=== PATIENT | female | born 1975 | race Caucasian/White ===

== ENCOUNTER 2018-03-15 20:21 | Emergency (ER) | payer OTHER ==
[2018-03-15] MEDS ORDERED: LORazepam 2 MG/ML INJ IVP ONE ×2 (20:25→21:18)
--- NOTE | 2018-03-15 20:28 | EDPHY ---
H & P Source: Patient, EMS - Personal History Tetanus Vaccine Date: 1997 Time Seen by Provider: 03/15/18 20:25 HPI/ROS: HPI CHIEF COMPLAINT: PTSD, anxiety attack HISTORY OF PRESENT ILLNESS: Patient is a 42-year-old female, history comes from EMS as the patient will not talk to me, she presents emergency room after she was at her therapist's office an apparently underwent an anxiety attack. EMS reports that she was in her therapist office for hours moaning and writhing in the office. This happens when she has an anxiety/PTSD attack. Upon arrival to the emergency room the patient will not answer my questions. She does appear anxious. EMS gave her 4 mg IV Versed to transport her here. History review of systems is somewhat limited due to patient not answering any of my questions. Past Medical History: History of panic attacks, anxiety, PTSD, cardiac ablation , bipolar disorder cervical strain Past Surgical History: No recent surgery history cardiac ablation Social History: Denies drugs alcohol tobacco. Family History: Noncontributory ROS REVIEW OF SYSTEMS: Review of systems limited due to patient not answering my questions. Exam Constitutional appears anxious triage nursing summary reviewed, vital signs reviewed, awake/alert. Eyes normal conjunctivae and sclera, EOMI, PERRLA. HENT normal inspection, atraumatic, moist mucus membranes, no epistaxis, neck supple/ no meningismus, no raccoon eyes. Respiratory clear to auscultation bilaterally, normal breath sounds, no respiratory distress, no wheezing. Cardiovascular rate normal, regular rhythm, no murmur, no edema, distal pulses normal. Gastrointestinal soft, non-tender, no rebound, no guarding, normal bowel sounds, no distension, no pulsatile mass. Genitourinary no CVA tenderness. Musculoskeletal no midline vertebral tenderness, full range of motion, no calf swelling, no tenderness of extremities, no meningismus, good pulses, neurovascularly intact. Skin pink, warm, & dry, no rash, skin atraumatic. Neurologic patient is awake and alert, moves everything but does not answer any of my questions. Psychiatric anxious Heme/Lymph/Immune no lymphadenopathy. Differential Diagnosis: Includes but is not limited to in a particular order acute anxiety, panic attack, PTSD, mood disorder, bipolar disorder, Medical Decision Making: Plan for this patient IV establishment IV Ativan 1 mg , check basic blood work, alcohol and drug screen. IV Ativan 1 mg. Re-evaluate. Re-evaluation: 2199: Patient is still writhing around on the bed. Anxious. She has received 2 mg IV Ativan. I have now reassessed her and I have ordered her 5 mg IV Versed. Her therapist is at bedside. Reports to me that she gets like this when she has anxiety and PTSD issues. (Josh Paulino) Constitutional: Initial Vital Signs Temperature (C) 36.4 C 03/15/18 20:25 Heart Rate 77 03/15/18 20:25 Respiratory Rate 16 03/15/18 20:25 Blood Pressure 108/87 H 03/15/18 20:25 O2 Sat (%) 94 03/15/18 20:25 O2 Delivery Mode Room Air Allergies/Adverse Reactions: No Known Allergies Allergy (Unverified 09/01/12 21:20) Home Medications: Medication Instructions Recorded Klonopin 03/15/18 Seroquel 03/15/18 Medical Decision Making ED Course/Re-evaluation: 6:44 a.m.- The patient remained stable throughout my shift. She did receive an additional dose of ketamine which helped her significantly. We are awaiting mental health evaluation this morning. The case is signed out to Dr. Rod. (Jasmin Caceres) I took over care of this patient at 7:00 a.m.. This patient is here for a psychiatric evaluation following a anxiety and PTSD attack. She has been given Ativan as well as ketamine 20 mg last night to treat her symptoms. She is awaiting behavioral health evaluation which should occur this morning. She currently is not on an M1 hold. 7:55 a.m., the patient has been seen and evaluated by Behavioral Health. She does not meet criteria for an M1 hold. She is not suicidal. She has been cleared for discharge by the attending psychiatrist Dr. Estrada. She has follow -up with her psychiatrist today at 9:00 p.m.. Family is present and they feel comfortable taking her home and seeing her to her follow-up appointment. Return to emergency department precautions reviewed. The patient's remaining emergency department course under my care has been uneventful. She was discharged home in good condition with family. (Nicanor Rod) - Data Points Laboratory Results: Laboratory Results 03/15/18 21:10 03/15/18 21:10 03/16/18 03/15/18 03/15/18 05:45 21:10 21:10 WBC RBC Hgb Hct MCV MCH MCHC RDW Plt Count MPV Neut % (Auto) Lymph % (Auto) Hardin % (Auto) Eos % (Auto) Baso % (Auto) Nucleat RBC Rel Count Absolute Neuts (auto) Absolute Lymphs (auto) Absolute Monos (auto) Absolute Eos (auto) Absolute Basos (auto) Absolute Nucleated RBC Immature Gran % Immature Gran # Sodium Potassium Chloride Carbon Dioxide Anion Gap BUN Creatinine Estimated GFR Glucose Calcium Creatine Kinase 144 IU/L IU/L (0-156) Beta HCG, Qual NEGATIVE Urine Opiates Screen NEGATIVE (NEGATIVE) Urine Barbiturates NEGATIVE (NEGATIVE) Ur Phencyclidine Scrn NEGATIVE (NEGATIVE) Ur Amphetamine Screen NON-NEGATIVE H (NEGATIVE) U Benzodiazepines Scrn NON-NEGATIVE H (NEGATIVE) Urine Cocaine Screen NEGATIVE (NEGATIVE) U Marijuana (THC) Screen NEGATIVE (NEGATIVE) Ethyl Alcohol 03/15/18 03/15/18 21:10 21:10 WBC 8.63 10^3/uL 10^3/uL (3.80-9.50) RBC 5.19 10^6/uL 10^6/uL (4.18-5.33) Hgb 15.1 g/dL g/dL (12.6-16.3) Hct 44.7 % % (38.0-47.0) MCV 86.1 fL fL (81.5-99.8) MCH 29.1 pg pg (27.9-34.1) MCHC 33.8 g/dL g/dL (32.4-36.7) RDW 13.5 % % (11.5-15.2) Plt Count 204 10^3/uL 10^3/uL (150-400) MPV 10.8 fL fL (8.7-11.7) Neut % (Auto) 61.6 % % (39.3-74.2) Lymph % (Auto) 29.2 % % (15.0-45.0) Hardin % (Auto) 8.6 % % (4.5-13.0) Eos % (Auto) 0.0 % L % (0.6-7.6) Baso % (Auto) 0.3 % % (0.3-1.7) Nucleat RBC Rel Count 0.0 % % (0.0-0.2) Absolute Neuts (auto) 5.31 10^3/uL 10^3/uL (1.70-6.50) Absolute Lymphs (auto) 2.52 10^3/uL 10^3/uL (1.00-3.00) Absolute Monos (auto) 0.74 10^3/uL 10^3/uL (0.30-0.80) Absolute Eos (auto) 0.00 10^3/uL L 10^3/uL (0.03-0.40) Absolute Basos (auto) 0.03 10^3/uL 10^3/uL (0.02-0.10) Absolute Nucleated RBC 0.00 10^3/uL 10^3/uL (0-0.01) Immature Gran % 0.3 % % (0.0-1.1) Immature Gran # 0.03 10^3/uL 10^3/uL (0.00-0.10) Sodium 143 mEq/L mEq/L (135-145) Potassium 4.0 mEq/L mEq/L (3.5-5.2) Chloride 109 mEq/L mEq/L (97-110) Carbon Dioxide 24 mEq/l mEq/l (22-31) Anion Gap 10 mEq/L mEq/L (8-16) BUN 11 mg/dL mg/dL (7-23) Creatinine 0.8 mg/dL mg/dL (0.6-1.0) Estimated GFR > 60 Glucose 71 mg/dL mg/dL (70-100) Calcium 9.7 mg/dL mg/dL (8.5-10.4) Creatine Kinase Beta HCG, Qual Urine Opiates Screen Urine Barbiturates Ur Phencyclidine Scrn Ur Amphetamine Screen U Benzodiazepines Scrn Urine Cocaine Screen U Marijuana (THC) Screen Ethyl Alcohol < 10 mg/dL mg/dL (0-10) Medications Given: Discontinued Medications Sodium Chloride (Ns) 1,000 mls @ 0 mls/hr IV ONCE ONE; Wide Open PRN Reason: Protocol Stop: 03/15/18 21:19 Last Admin: 03/15/18 21:21 Dose: 1,000 mls Ketamine HCl (Ketamine) 20 mg IVP EDNOW ONE Stop: 03/15/18 23:05 Last Admin: 03/15/18 23:11 Dose: 20 mg Ketamine HCl (Ketamine) 20 mg IVP EDNOW ONE Stop: 03/16/18 02:18 Last Admin: 03/16/18 02:21 Dose: 20 mg Lorazepam (Ativan Injection) 1 mg IVP EDNOW ONE Stop: 03/15/18 20:26 Last Admin: 03/15/18 21:04 Dose: 1 mg Lorazepam (Ativan Injection) 1 mg IVP EDNOW ONE Stop: 03/15/18 21:19 Last Admin: 03/15/18 21:21 Dose: 1 mg Midazolam HCl (Versed) 5 mg IVP EDNOW ONE Stop: 03/15/18 21:56 Last Admin: 03/15/18 22:12 Dose: 5 mg Departure - Departure Disposition: Home, Routine, Self-Care Clinical Impression: Anxiety reaction Condition: Good Instructions: Anxiety (ED), Post Traumatic Stress Disorder (ED) Additional Instructions: Read and follow provided instructions. Follow-up with your psychiatrist as scheduled today at 9:00 a.m.. It is very important you do this. Return to the emergency department for worsening symptoms, worsening depression , suicidal thoughts or other serious concerns. Referrals: Patient,NotPresent [Unknown] - As per Instructions
[2018-03-15] MEDS ORDERED: LORazepam 2 MG/ML INJ ONE (20:45)
[2018-03-15] MEDS ORDERED: NS 1,000 ML IV ONE (21:18)
[2018-03-15 21:35] LABS: PLATELET COUNT 204 10^3/uL (150-400)
[2018-03-15] MEDS ORDERED: MIDAZOLAM 2 MG/2 ML VIAL IVP ONE (21:55)
[2018-03-15] MEDS: KETAMINE 200 MG/20 ML VIAL IVP ONE (23:11)
[2018-03-16] MEDS ORDERED: KETAMINE 200 MG/20 ML VIAL ONE (02:16)
[2018-03-16] MEDS ORDERED: KETAMINE 500 MG/10 ML VIAL IVP ONE (02:17)
[2018-03-16] MEDS: KETAMINE 200 MG/20 ML VIAL IVP ONE (02:18)
[2018-03-16 08:37] VITALS: BP 127/60
== END 2018-03-16 08:37 | disposition home or self-care (01) ==
LOC: EDUNIT# → EEVIPCON 20:21
DX: F41.1 Generalized anxiety disorder (principal); E86.9 Volume depletion, unspecified
CPT/HCPCS: 90791; 96361; 96374; 96375; 96376; 99284; J2060; J2250; 80305; G0480

== ENCOUNTER 2018-08-25 15:47 | Emergency (ER) | payer OTHER ==
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
[2018-08-25] MEDS ORDERED: LORazepam 1 MG TAB PO ONE (16:17)
[2018-08-25] MEDS ORDERED: ONDANSETRON DISINTEGRATING 4 MG TAB PO ONE (16:30)
[2018-08-25] MEDS ORDERED: AZITHROMYCIN 250 MG TAB PO ONE ×2 (17:17→17:26)
[2018-08-25] MEDS ORDERED: ULIPRISTAL ACETATE 30 MG TAB PO ONE ×2 (17:17→17:26)
[2018-08-25] MEDS ORDERED: HALOPERIDOL LACT 5 MG/ML INJ ONE (17:20)
[2018-08-25] MEDS ORDERED: HALOPERIDOL LACT 5 MG/ML INJ IM ONE (17:21)
[2018-08-25 20:05] VITALS: BP 119/73
== END 2018-08-25 19:35 | disposition home or self-care (01) ==
LOC: EEVIPCON 15:47 → SANE 19:35
DX: T74.21XA Adult sexual abuse, confirmed, initial encounter (principal)
CPT/HCPCS: 96372; 99284; J0696; J1630

== ENCOUNTER → 2018-11-10 | Outpatient (CLI) | payer OTHER | LOC: BMCIMAGING 09:41 | PROVIDERS: ATTEND Family Medicine | DX: S92.411A Displaced fracture of proximal phalanx of right great toe, initial encounter for closed fracture (principal); M25.511 Pain in right shoulder ==